=== PATIENT | female | born 1960 | race Caucasian/White ===

== ENCOUNTER 2017-02-19 08:22 | Day surgery (SDC) | payer BC, OTHER ==
[~2017-02-19 08:22] MED LIST: RINGERS SOLUTION,LACTATED 1,000 ML IV PRN; ceFAZolin SODIUM 1 GM in DEXTROSE 5 % IN WATER 100 ML IV PRN
--- OUTSIDE RECORDS SUMMARY | 2017-02-19 08:25 | XMS REPORT | Continuity of Care Document ---
:1960 Author Organization [facility] ([facility]) Address [address] [place] [address] Phone [phone] Care Team Providers Name Role Phone Deepa Jain Primary Care Provider [phone] Source Comments This disclosure is being made pursuant to the Care Everywhere program, applicable federal and state laws, and may not contain all informaitonavailable regarding this patient.[facility] ([facility]) Active Allergies and Adverse Reactions No Known Allergies Current Medications No known medications Active Problems Problem Noted Date Hematuria - cause not known 06/19/2013 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 06/19/2013 Social History Tobacco Use Types Packs/Day Years Used Date Current Every Day Smoker Cigarettes 1 40 Tobacco Cessation:Counseling Given: No Comments: Last Filed Vital Signs Vital Sign Reading Time Taken Blood Pressure 124/68 06/18/2013 11:35 AM CDT Pulse 78 06/18/2013 11:35 AM CDT Temperature 36.7 C (98 F) 06/18/2013 11:35 AM CDT Respiratory Rate 12 06/18/2013 11:35 AM CDT Height 1.702 m (5' 7.01") 06/18/2013 11:35 AM CDT Weight 69.673 kg (153 lb 9.6 oz) 06/18/2013 11:35 AM CDT Body Mass Index 24.05 06/18/2013 11:35 AM CDT Oxygen Saturation - - Plan of Care Health Maintenance Due Date Last Done Comments HCV Screening 1960 Hepatitis B Vaccine (1 of 3 - Primary Series) 1960 Tdap Vaccine 1970 Lipid Disorder Screening 1977 MMR Vaccine 1977 Td Vaccine 1977 Pneumococcal Vaccine (1 of 1 - PPSV23) 1978 Cervical Cancer Screening 1989 Mammogram 1999 Colonoscopy 03/02/2009 Influenza Vaccine: Seasonal (#1) 05/15/2016 Results from Last 3 Months Not on file
[2017-02-19] MEDS ORDERED: BUPIVACAINE HCL 50 ML VIAL IJ ONE (10:05)
[2017-02-19] MEDS ORDERED: LIDOCAINE HCL 50 ML VIAL IJ ONE (10:05)
[2017-02-19 14:07] VITALS: BP 135/74
== END 2017-02-19 08:23 | disposition home or self-care (01) ==
LOC: AMB 08:22
PROVIDERS: ATTEND Student in an Organized Health Care Education/Training Program
PROC: 0QBQ0ZZ Excision of Right Toe Phalanx, Open Approach (ICD-10-PCS; 2017-02-19)
PROC: 0QBP0ZZ Excision of Left Metatarsal, Open Approach (ICD-10-PCS; 2017-02-19)
PROC: 0QBN0ZZ Excision of Right Metatarsal, Open Approach (ICD-10-PCS; 2017-02-19)
PROC: 0QBR0ZZ Excision of Left Toe Phalanx, Open Approach (ICD-10-PCS; principal; 2017-02-19 09:00)
DX: M21.612 Bunion of left foot (principal); M21.611 Bunion of right foot; M20.42 Other hammer toe(s) (acquired), left foot; M20.41 Other hammer toe(s) (acquired), right foot; M77.42 Metatarsalgia, left foot; M77.41 Metatarsalgia, right foot; E78.5 Hyperlipidemia, unspecified; F17.200 Nicotine dependence, unspecified, uncomplicated; Z68.23 Body mass index [BMI] 23.0-23.9, adult